=== PATIENT | male | born 2000 | race Caucasian/White ===

== ENCOUNTER 2022-08-25 23:15 | Emergency (ER) | payer OTHER ==
[2022-08-25] MEDS ORDERED: traMADol HCl 50 MG TAB ONE ×2 (23:29)
[2022-08-25] MEDS ORDERED: Ibuprofen 800 MG TAB ONE (23:30)
== END 2022-08-25 23:54 | disposition home or self-care (01) ==
LOC: BURERS 23:15
DX: S50.02XA Contusion of left elbow, initial encounter (principal); W01.0XXA Fall on same level from slipping, tripping and stumbling without subsequent striking against object, initial encounter